=== PATIENT | female | born 1970 ===

== ENCOUNTER 2017-11-12 18:36 | Emergency (ER) | payer SELFPAY ==
[2017-11-12 18:43] VITALS: BMI 28.2
[2017-11-12 18:46] VITALS: TEMP 98.3
[2017-11-12] MEDS ORDERED: Aspirin 325 mg EC Tablets PO STA (19:19)
[2017-11-12] MEDS ORDERED: Aspirin 325 mg EC Tablets PO ONE (19:26)
[2017-11-12 19:28] LABS: BASO % 0.4 % (0.0-2.0); EOS # 0.1 K/uL (0.0-0.7); EOS % 1.4 % (0.0-4.0); HEMOGLOBIN 13.3 g/dL (11.0-16.0); LYMPH # 2.2 K/uL (1.0-4.3); LYMPH % 31.4 % (20.0-40.0); MEAN CELL VOLUME 86.7 fL (81.0-99.0); MEAN CORPUSCULAR HEMOGLOBIN 30.1 pg (27.0-31.0); MEAN CORPUSCULAR HGB CONC 34.6 g/dL (33.0-37.0); MEAN PLATELET VOLUME 9.2 fL (7.2-11.7); MONO # 0.6 K/uL (0.0-0.8); MONO % 7.9 % (0.0-10.0); NEUT # 4.2 K/uL (1.8-7.0); NEUT % 58.9 % (50.0-75.0); NRBC % 0.1 % (0.0-2.0); RBC 4.42 Mil/uL (3.80-5.20); RED CELL DISTRIBUTION WIDTH 12.6 % (11.5-14.5); WHITE BLOOD COUNT 7.1 K/uL (4.8-10.8)
--- NOTE | 2017-11-12 19:35 | C.PDOC ---
History Of Present Illness 46 year old female presents to the ER with a complaint of left shoulder pain described as pinching for 2 days that worsens with movement; patient noted to be hypertensive on arrival. Patient states she took ibuprofen at home with no relief. Denies nausea or diaphoresis. Time Seen by Provider: 11/12/17 19:08 Chief Complaint (Nursing): Chest Pain History Per: Patient History/Exam Limitations: no limitations Onset/Duration Of Symptoms: Days Current Symptoms Are (Timing): Still Present Quality: Other (Pinching) Associated Symptoms: denies: Nausea, Dyspnea, Diaphoresis, Syncope Modifying Factors: None Exacerbating Factors: Movement Alleviating Factors: None Recent travel outside of the [place]: No Past Medical History Reviewed: Historical Data, Nursing Documentation, Vital Signs Vital Signs: Last Vital Signs Temp 98.3 F 11/12/17 18:41 Pulse 54 L 11/12/17 22:42 Resp 18 11/12/17 22:42 BP 115/54 L 11/12/17 22:42 Pulse Ox 97 11/12/17 22:42 Family History: States: Unknown Family Hx - Social History Hx Alcohol Use: No Hx Substance Use: No - Immunization History Hx Tetanus Toxoid Vaccination: No Hx Influenza Vaccination: No Hx Pneumococcal Vaccination: No Review Of Systems Except As Marked, All Systems Reviewed And Found Negative. Constitutional: Negative for: Sweats Gastrointestinal: Negative for: Nausea Musculoskeletal: Positive for: Shoulder Pain Physical Exam - Physical Exam Appears: Non-toxic Skin: Normal Color, Warm, Dry Head: Atraumatic, Normacephalic Eye(s): bilateral: Normal Inspection Oral Mucosa: Moist Chest: Symmetrical, No Tenderness Cardiovascular: Rhythm Regular Respiratory: Normal Breath Sounds, No Rales, No Rhonchi, No Wheezing Gastrointestinal/Abdominal: Soft, No Tenderness Back: No CVA Tenderness Extremity: Normal ROM (x4) Neurological/Psych: Oriented x3, Normal Speech ED Course And Treatment - Laboratory Results Result Diagrams: 11/12/17 19:25 11/12/17 19:25 ECG: Interpreted By Me, Viewed By Me ECG Rhythm: Sinus Rhythm ECG Interpretation: Normal Interpretation Of ECG: Normal intervals and axis, no ST/T wave abnormalities. Rate From EC O2 Sat by Pulse Oximetry: 99 (Room air) Pulse Ox Interpretation: Normal Medical Decision Making Medical Decision Making: Assessment: Chest pain Plan: * EKG * Blood work * CXR * Urinalysis * Aspirin * Reassess * * ekg - nsr at rate of 72 bpm with nrm intervals, nrm axis, no st or twave abn. * patient states pain is in left shoulder and occur after lifting sofa * xrays reviewed * will discharge home to follow up with pmd in 2 days Disposition - Disposition Referrals: [facility] [Outside] Disposition: HOME/ ROUTINE Disposition Time: 22:45 Condition: STABLE Additional Instructions: follow up with your doctor or clinic in 2 days call to make an appointment take medications as needed for pain return to ER if symptoms worsens or progress Prescriptions: Naproxen [Naprosyn] 500 mg PO BID PRN #16 tab PRN Reason: Pain, Moderate (4-7) traMADol [Ultram] 50 mg PO TID PRN #12 tab PRN Reason: Pain, Moderate (4-7) Instructions: Muscle Strain (DC), Muscle and Bone Pain (DC) Forms: Gen Discharge Inst Italian, [employer] (Italian), Work Excuse Print Language: BENGALI - Clinical Impression Clinical Impression: Shoulder pain - Scribe Statement The provider has reviewed the documentation as recorded by the Scribe Calvin Dennis All medical record entries made by the Scribe were at my direction and personally dictated by me. I have reviewed the chart and agree that the record accurately reflects my personal performance of the history, physical exam, medical decision making, and the department course for this patient. I have also personally directed, reviewed, and agree with the discharge instructions and disposition.
[2017-11-12 19:41] LABS: ALB/GLOB RATIO 1.3 (1.0-2.1); ALBUMIN 4.1 g/dL (3.5-5.0); ALT/SGPT 31 U/L (9-52); AST/SGOT 23 U/L (14-36); BLOOD UREA NITROGEN 27 mg/dL (7-17); CALCIUM 8.9 mg/dl (8.6-10.4); GFR AFRICAN-AMERICAN > 60; GFR NON-AFRICAN AMERICAN > 60
[2017-11-12 19:52] LABS: B-TYPE NATRIURETIC PEPTIDE 43.7 pg/mL (0-450)
[2017-11-12 22:43] VITALS: BP 115/54; PULSE 54; RESP 18
[2017-11-12 22:46] VITALS: O2SAT 99
--- NOTE | 2017-11-13 08:14 | RAD ---
Chest x-ray single frontal view History: Chest pain. Comparison: None available. Findings: Moderate venous congestion. Patchy increased markings at the left lung base. Small left pleural effusion. Cardiomegaly. Enlarged ectatic aorta. Degenerative changes in the spine and shoulders. Impression: Moderate venous congestion. Patchy increased markings at the left lung base. Small left pleural effusion. Cardiomegaly. Enlarged ectatic aorta.
--- NOTE | 2017-11-13 08:31 | RAD ---
Chest x-ray two views History: Cough. Comparison: 11/12/2017 Findings: Mild venous congestion. Heart size within normal limits. Impression: Mild venous congestion.
--- NOTE | 2017-11-13 08:41 | RAD ---
PROCEDURE: Radiographs of the Left Shoulder HISTORY: fall COMPARISON: No prior. FINDINGS: BONES: Normal. No fracture. JOINTS: Normal. Glenohumeral and acromioclavicular joints preserved. No osteoarthritis. SOFT TISSUES: Normal. OTHER FINDINGS: None. IMPRESSION: Normal radiographs of the left shoulder.
--- NOTE | 2017-11-13 16:04 | CARD ---
APPROVED REPORT EKG Measurement Heart [id number] <Conclusion> Normal sinus rhythm Normal ECG
== END 2017-11-12 23:20 | disposition home or self-care (01) ==
LOC: C.ER 18:36
DX: M25.512 Pain in left shoulder (principal)
CPT/HCPCS: 71045; 71046; 73030; 80053; 83880; 84484; 84703; 85025; 93005; 96374; 99285; J1885